=== PATIENT | male | born 1940 | race Caucasian/White ===

== ENCOUNTER 2016-10-10 06:15 | Day surgery (SDC) | payer MEDICARE, OTHER ==
[~2016-10-10] VITALS: Ht 170.2 cm; Wt 76.2 kg
[~2016-10-10 06:15] MED LIST: ASPIRIN EC81 MG PO; FINASTERIDE5 MG PO; SIMVASTATIN40 MG PO
[2016-10-10] MEDS ORDERED: TYLENOL325 MG PO (06:41)
[2016-10-10] MEDS ORDERED: FIBER 6 TABLE1000 MG PO (06:41)
[2016-10-10] MEDS ORDERED: CENTRUM SILVER1 EAC6 PO (06:41)
--- NOTE | 2016-10-10 07:57 | NUR ---
10/10/16 0757 Rach Keys REPORT FROM ENDO [facility].
--- NOTE | 2016-10-10 21:25 | OR ---
[facility] [address], [place] [address] Signed DATE OF PROCEDURE: 10/10/16 PREOPERATIVE DIAGNOSES Hemorrhoids. Diverticulosis. Hyperplastic rectal polyp in 2006. Screening. POSTOPERATIVE DIAGNOSES Left-sided moderate diverticulosis. Internal hemorrhoids with associated skin tags. PROCEDURE: Colonoscopy without biopsy. ESTIMATED BLOOD LOSS: None. INDICATIONS Brandon is a 76-year-old gentleman, who came to us in 2006 for screening colonoscopy. He had some hemorrhoids with skin tags along with left-sided diverticulosis. We also found a tiny hyperplastic polyp in the mid rectum. He returns now for followup colonoscopy. He has no lower GI complaints. There is no family history of colon cancer or polyps. I had met with Brandon in the office, I gave him a pamphlet on colonoscopy. We reviewed the nature of the test along with the risks including, but not limited to gas bloating, crampy abdominal pain, bleeding, perforation requiring surgery, and missed diagnosis. We also discussed the need for IV conscious sedation. He had expressed understanding and wished to proceed. PROCEDURE NOTE Brandon was taken into endoscopy suite and placed in the left lateral decubitus position. He was given 5 mg of Versed and 125 mcg of Fentanyl for the case. A digital rectal exam was performed and this was unremarkable. The adult colonoscope was introduced and advanced all the way around into the cecum under direct visualization of the camera without difficulty. His prep was quite good. The scope was then slowly withdrawn. He does have left-sided moderate diverticulosis. They are moderate in size, moderate in number, and scattered about. Once in the rectum, the scope was then retroflexed and he does have some average internal hemorrhoid columns with a few associated skin tags. After this, the gas was suctioned out, the colonoscope removed. Brandon tolerated the procedure quite well. RECOMMENDATIONS Brandon is welcome to follow up in 10 years for repeat colonoscopy, so long his health Electronically Signed By: SHERON CORTEZ MD 10/10/16 2125 PATIENT NAME: GAUARVDARCYBRANDON OPERATIVE REPORT DATE OF : 40 PHYSICIAN: SHERON CORTEZ MD REPORT #: [id number] REPORT IS CONFIDENTIAL AND NOT TO BE RELEASED WITHOUT AUTHORIZATION [address] [address] Signed holds . MD DOROTHEA Sarah/Modl /[id number] cc: Salvador Hidalog DO Electronically Signed By: SHERON CORTEZ MD 10/10/16 2125 PATIENT NAME: BRANDON BANKS OPERATIVE REPORT DATE OF : 40 PHYSICIAN: SHERON CORTEZ MD REPORT #: [id number] REPORT IS CONFIDENTIAL AND NOT TO BE RELEASED WITHOUT AUTHORIZATION
== END 2016-10-10 08:40 | disposition home or self-care (01) ==
LOC: DS 06:15 → OPS 06:15 → DS 06:45 → OPS 08:40
PROVIDERS: Colon & Rectal Surgery
PROC: 0DJD8ZZ Inspection of Lower Intestinal Tract, Via Natural or Artificial Opening Endoscopic (ICD-10-PCS; principal; 2016-10-10 06:45)
DX: K57.30 Diverticulosis of large intestine without perforation or abscess without bleeding (principal); K64.8 Other hemorrhoids; I25.10 Atherosclerotic heart disease of native coronary artery without angina pectoris; N40.0 Benign prostatic hyperplasia without lower urinary tract symptoms; E78.5 Hyperlipidemia, unspecified; E03.9 Hypothyroidism, unspecified; M19.90 Unspecified osteoarthritis, unspecified site; Z87.891 Personal history of nicotine dependence; Z98.49 Cataract extraction status, unspecified eye; Z90.89 Acquired absence of other organs; Z98.890 Other specified postprocedural states
CPT/HCPCS: 99152; 99153; J2250; J3010; J7120